=== PATIENT | male | born 1970 | race Caucasian/White ===

== ENCOUNTER 2016-08-21 13:10 | Emergency (ER) | payer OTHER ==
[~2016-08-21] VITALS: Ht 177.8 cm; Wt 118.5 kg
[2016-08-21 13:21] VITALS: TEMP 36.8; Ht 177.8 cm; Wt 118.5 kg
--- NOTE | 2016-08-21 13:45 | EMERGENCY ROOM VISIT NOTE ---
ED Visit Note First contact with patient: 13:35 CHIEF COMPLAINT: knee pain HISTORY OF PRESENT ILLNESS: This 45-year-old male patient presents to the emergency department ambulatory after sustaining an injury to the left knee at work just prior to arrival. The patient states that he was responding to a call when he twisted suddenly to start running and had a sudden onset of pain in the left knee. He states that he felt a popping sensation in the knee at the onset of pain. He does report a history of surgery of the left knee for patellofemoral syndrome approximately 10 years ago. This was performed by [facility] in [place]. The patient denies any issues with the knee since surgery. He states that he is able to walk on the knee but has been limping. He rates his discomfort a 9/10 at worst, but states the pain is mild at rest. He has taken ibuprofen with some relief of the pain. He denies any other injuries. The patient denies swelling or bruising. There is pain in the back of the knee. No numbness or tingling. No ankle, foot or hip pain. REVIEW OF SYSTEMS: A 6 system review of systems was completed with positives and pertinent negatives listed in the HPI. ALLERGIES: No known drug allergies MEDICATIONS: TriCor PMH: Hyperlipidemia SOCIAL HISTORY: The patient lives locally with family. PHYSICAL EXAM: Vital Signs: Reviewed Nurse's notes, vital signs stable. GENERAL : This is a 45-year-old male, no acute distress, but appears in pain, well- developed, well-nourished. MENTAL STATUS: Alert, oriented to person place and time, and cooperative. MUSCULOSKELETAL: The left knee is not swollen. There is no ecchymosis. There is no significant joint effusion present. The patient is tender over the popliteal aspect of the knee. There is no joint line tenderness. The patella does not subluxate. Range of motion is full. Strength of the quads and hamstrings is 5/5. Isidro's is negative. Ligia's and Anterior Drawer tests are negative. There is no laxity with varus and valgus stressing. The foot and toes are warm and well-perfused. Dorsalis pedis pulse 2+. Sensation to pain and light touch is intact. Capillary refill less than 2 seconds. RADIOGRAPHIC FINDINGS: LEFT KNEE 3 VIEWS CLINICAL HISTORY: Left knee pain following twisting injury. COMPARISON: None FINDINGS: Alignment of left knee is anatomic. There is no acute fracture. A small left knee joint effusion is present. Osteophytic spurring of the proximal tibia is noted. IMPRESSION: 1. No acute fracture. 2. Small left knee joint effusion. 3. Mild osteoarthritis of the left knee. EMERGENCY DEPARTMENT COURSE: I examined the patient. X-rays of the left knee were reviewed by myself and read by radiology and reveal a small joint effusion , but no other acute abnormalities. The patient was placed in a knee immobilizer under my direction and the position was satisfactory. The patient was instructed on the use of crutches. He will follow-up with his established orthopedic surgeon, as he has had previous surgery to the left knee. He declined analgesics. Conservative measures were discussed. The patient was discharged home in good condition. DIAGNOSIS: Left knee injury Current/Historical Medications Scheduled Fenofibrate (Tricor), 1 TAB PO DAILY Miscellaneous Medications Fish Oil ([place]-3), 1 CAP PO Vital Signs Date Time Temp Pulse Resp B/P Pulse Ox O2 Delivery O2 Flow Rate FiO2 08/21/16 14:43 80 16 163/83 96 Room Air 08/21/16 13:21 36.8 88 18 174/97 95 Room Air Departure Information Impression Primary Impression: Left knee injury Dispostion Home / Self-Care Condition GOOD Referrals No Doctor, Assigned (PCP) Patient Instructions [facility] Additional Instructions You have been treated in the Emergency Department for Knee Pain. For pain control, you can use the following [id number] medicines (if >12 yo): - Regular strength (325mg/tab) Tylenol (acetaminophen) 2 tabs every 4-6 hours as needed. Do not exceed 12 tablets in a 24 hour period. Avoid taking more than 4 grams (4000 mg) of Tylenol per day. This includes any other sources of acetaminophen you may take on a regular basis. - Regular strength (200 mg/tab) Advil (ibuprofen) 1-2 tabs every 4-6 hours as needed. Do not exceed a dose of 3200 mg per day. If this is a recent injury (<24 hrs), ice can be applied to the area of pain for the first 3 days to help decrease pain and inflammation. Ice massages can be performed by freezing water in a paper cup, peeling back the cup to expose the ice and then massaging over the affected area. Follow-up with your established orthopedic surgeon for evaluation of your left knee injury. Keep the knee brace in place until cleared by Orthopedics. Use the crutches you have been provided to keep weight off of the knee until weight bearing is tolerable. Return to the Emergency Department if your current symptoms worsen despite treatment course outlined above. Problem Qualifiers Primary Impression: Left knee injury Encounter type: initial encounter Qualified Codes: S89.92XA - Unspecified injury of left lower leg, initial encounter
--- NOTE | 2016-08-21 14:16 | DIAGNOSTIC IMAGING REPORT ---
LEFT KNEE 3 VIEWS CLINICAL HISTORY: Left knee pain following twisting injury. COMPARISON: None FINDINGS: Alignment of left knee is anatomic. There is no acute fracture. A small left knee joint effusion is present. Osteophytic spurring of the proximal tibia is noted. IMPRESSION: 1. No acute fracture. 2. Small left knee joint effusion. 3. Mild osteoarthritis of the left knee. Electronically signed by: Adrian Green M.D. 08/21/2016 2:14 PM Dictated Date/Time: 08/21/2016 2:14 PM
[2016-08-21] MEDS ORDERED: OMEG10007 PO (14:37)
[2016-08-21] MEDS ORDERED: FENO48TA9 PO (14:37)
[2016-08-21 14:43] VITALS: BP 163/83; PULSE 80; O2SAT 96
== END 2016-08-21 15:00 | disposition home or self-care (01) ==
LOC: C.EDB 13:12 → C.EDD 15:00
DX: S89.92XA Unspecified injury of left lower leg, initial encounter (principal); Y99.0 Civilian activity done for income or pay; X50.0XXA Overexertion from strenuous movement or load, initial encounter; E78.5 Hyperlipidemia, unspecified; Y93.89 Activity, other specified; Z79.899 Other long term (current) drug therapy